=== PATIENT | female | born 1965 ===

== ENCOUNTER 2021-05-08 10:43 | Outpatient (CLI) | payer OTHER | END 2021-05-08 10:44 | disposition home or self-care (01) | LOC: RAD 10:43 | PROVIDERS: ATTEND Colon & Rectal Surgery | DX: K59.09 Other constipation (principal); M19.90 Unspecified osteoarthritis, unspecified site ==

== ENCOUNTER 2021-08-01 11:15 | Inpatient (IN) | payer OTHER ==
[~2021-08-01] VITALS: Ht 152.4 cm; Wt 81.2 kg
[2021-08-01] MEDS ORDERED: JANUMET 50-1,01 EACH PO (14:14)
[2021-08-01] MEDS ORDERED: JARDIANCE10 MG PO (14:14)
[2021-08-01] MEDS ORDERED: WELLBUTRIN SR100 MG PO (14:15)
[2021-08-01] MEDS ORDERED: ZESTRIL2.5 MG PO (14:15)
[2021-08-01] MEDS ORDERED: NORVASC2.5 M1 PO (14:32)
== END 2021-09-18 11:24 | disposition home or self-care (01) | DRG 329 ==
LOC: O/R 08-06 11:02 → ICU 08-06 11:02 → SURH 08-06 11:02 → ICU 08-15 16:31 → SURH 09-07 20:53
PROVIDERS: ADMIT Colon & Rectal Surgery; ATTEND Colon & Rectal Surgery
PROC: 0DBP4ZZ Excision of Rectum, Percutaneous Endoscopic Approach (ICD-10-PCS; 2021-08-06)
PROC: 0DJD8ZZ Inspection of Lower Intestinal Tract, Via Natural or Artificial Opening Endoscopic (ICD-10-PCS; 2021-08-06)
PROC: 0DTN4ZZ Resection of Sigmoid Colon, Percutaneous Endoscopic Approach (ICD-10-PCS; principal; 2021-08-06 23:30)
PROC: 4A12X4Z Monitoring of Cardiac Electrical Activity, External Approach (ICD-10-PCS; 2021-08-10)
PROC: 5A0935A Assistance with Respiratory Ventilation, Less than 24 Consecutive Hours, High Flow/Velocity Cannula (ICD-10-PCS; 2021-08-11)
PROC: 30233N1 Transfusion of Nonautologous Red Blood Cells into Peripheral Vein, Percutaneous Approach (ICD-10-PCS; 2021-08-11)
PROC: 02HV33Z Insertion of Infusion Device into Superior Vena Cava, Percutaneous Approach (ICD-10-PCS; 2021-08-12)
PROC: 5A09457 Assistance with Respiratory Ventilation, 24-96 Consecutive Hours, Continuous Positive Airway Pressure (ICD-10-PCS; 2021-08-14)
PROC: 0D9670Z Drainage of Stomach with Drainage Device, Via Natural or Artificial Opening (ICD-10-PCS; 2021-08-16)
PROC: 0BH17EZ Insertion of Endotracheal Airway into Trachea, Via Natural or Artificial Opening (ICD-10-PCS; 2021-08-17)
PROC: 5A1955Z Respiratory Ventilation, Greater than 96 Consecutive Hours (ICD-10-PCS; 2021-08-17)
PROC: 3E0436Z Introduction of Nutritional Substance into Central Vein, Percutaneous Approach (ICD-10-PCS; 2021-08-18)
PROC: 30243N1 Transfusion of Nonautologous Red Blood Cells into Central Vein, Percutaneous Approach (ICD-10-PCS; 2021-08-21)
PROC: 0W9J30Z Drainage of Pelvic Cavity with Drainage Device, Percutaneous Approach (ICD-10-PCS; 2021-08-30)
PROC: 5A0945A Assistance with Respiratory Ventilation, 24-96 Consecutive Hours, High Flow/Velocity Cannula (ICD-10-PCS; 2021-08-30)
DX: K59.02 Outlet dysfunction constipation (principal); J95.821 Acute postprocedural respiratory failure; J69.0 Pneumonitis due to inhalation of food and vomit; K63.1 Perforation of intestine (nontraumatic); K65.1 Peritoneal abscess; J80 Acute respiratory distress syndrome; T81.43XA Infection following a procedure, organ and space surgical site, initial encounter; K91.89 Other postprocedural complications and disorders of digestive system; B96.20 Unspecified Escherichia coli [E. coli] as the cause of diseases classified elsewhere; B96.5 Pseudomonas (aeruginosa) (mallei) (pseudomallei) as the cause of diseases classified elsewhere; D64.9 Anemia, unspecified; E11.65 Type 2 diabetes mellitus with hyperglycemia; G47.30 Sleep apnea, unspecified; I10 Essential (primary) hypertension; Z79.84 Long term (current) use of oral hypoglycemic drugs
CPT/HCPCS: 71275; 72191; 74175

== ENCOUNTER 2021-10-15 13:29 | Emergency (ER) | payer OTHER ==
[~2021-10-15] VITALS: Ht 157.5 cm; Wt 71.7 kg
[~2021-10-15 13:29] MED LIST: JANUMET 50-1,01 EACH PO; JARDIANCE10 MG PO; NORVASC2.5 M1 PO; WELLBUTRIN SR100 MG PO; ZESTRIL2.5 MG PO
[2021-10-15] MEDS ORDERED: NEURONTIN800 MG PO (13:45)
== END 2021-10-15 17:03 | disposition home or self-care (01) ==
LOC: ER 13:29
DX: K52.9 Noninfective gastroenteritis and colitis, unspecified (principal); E11.9 Type 2 diabetes mellitus without complications; Z79.84 Long term (current) use of oral hypoglycemic drugs; I10 Essential (primary) hypertension